=== PATIENT | male | born 1980 | race Two or more races ===

== ENCOUNTER 2023-04-15 13:55 | Emergency (ER) | payer SELFPAY ==
[~2023-04-15] VITALS: Ht 177.8 cm; Wt 90.0 kg
[2023-04-15 14:00] VITALS: BP 128/80
[2023-04-15 14:37] LABS: Basophils # (auto) 0.1 10 ^3/uL (0-0.2); Basophils % (auto) 0.8 % (0.0-2.0); Eosinophils # (auto) 0.1 10 ^3/uL (0-0.8); Eosinophils % (auto) 0.8 % (0.0-7.0); Hematocrit 37.2 % (41.0-53.0); Lymphocytes # (auto) 0.7 10 ^3/uL (0.4-5.4); Lymphocytes % (auto) 9.6 % (10.0-50.0); Mean Corpuscular Hemoglobin 31.1 pg (28.0-32.0); Mean Corpuscular Hgb Conc. 34.8 g/dL (32.0-36.0); Mean Corpuscular Volume 89.5 fL (80.0-100.0); Monocytes # (auto) 0.3 10 ^3/uL (0-1.3); Monocytes % (auto) 4.7 % (0.0-12.0); Neutrophils # (auto) 5.8 10 ^3/uL (1.6-8.6); Neutrophils % (auto) 84.1 % (37.0-80.0); Nucleated Red Blood Cells % 0.1 %; Red Blood Cells 4.16 10^6/uL (4.5-5.90); Red Cell Distribution Width 14.3 % (11.8-14.3); White Blood Cell 6.9 10^3/uL (4.4-10.8)
[2023-04-15 15:08] LABS: Potassium 4.6 mmol/L (3.5-5.1)
[2023-04-15 15:13] LABS: BUN/Creatinine Ratio 19.1 (10.0-20.0); Bilirubin, Total 0.3 mg/dL (0.2-1.0); Total Protein 6.6 g/dL (6.4-8.2)
== END 2023-04-15 17:50 | disposition home or self-care (01) ==
LOC: EDBD 13:55 → ER 13:55
DX: T67.5XXA Heat exhaustion, unspecified, initial encounter (principal); E11.9 Type 2 diabetes mellitus without complications; X58.XXXA Exposure to other specified factors, initial encounter; Y93.89 Activity, other specified; Y92.89 Other specified places as the place of occurrence of the external cause; Y99.8 Other external cause status
CPT/HCPCS: 36415; 80053; 83880; 84484; 85025; 85379; 93005

== ENCOUNTER 2025-08-03 06:12 | Inpatient (IN) | payer BC ==
[2025-08-03] VITALS (16 sets, daily range): BP systolic 148–185; BP diastolic 84–109; PULSE 80–107; RESP 10–19; TEMP 97.5–97.8; O2SAT 90–100
[~2025-08-03] VITALS: Ht 177.8 cm; Wt 99.3 kg
[2025-08-03] MEDS: PROCHLORPERAZINE EDISYLATE 5 MG/ML 2ML VIAL IV ONE (06:37)
[2025-08-03] MEDS: SODIUM CHLORIDE 0.9% 1,000 ML IV ONE ×3 (06:38→08:45)
[2025-08-03] MEDS: SODIUM CHLORIDE 0.9% 2,000 ML IV ONE (06:50)
[2025-08-03] MEDS ORDERED: SODIUM CHLORIDE 0.9% 1,000 ML IV ONE (07:00)
--- NOTE | 2025-08-03 07:02 | ED.PDOC ---
GI ASSESSMENT HPI Comments This is a 44-year-old male with a Hx of HTN and DM, who presents to the ED via EMS with a chief complaint of N/V and headache as of 1999 last night. Patient states his headache is a 8/10, with no known relieving factors. Patient reports last ingestion of ETOH was X2 days ago. Per EMS, patient was given Zofran en route with glucose reading 300 en route. Patient has no further complaints at this time and otherwise denies further associated symptoms of hematemesis, fatigue, weakness, fever, or chills. Chief Complaint: Nausea/Vomiting Time Seen by MD: 06:35 Reviewed Notes: Vp Notes, Medications, Allergies Allergies: Coded Allergies: Tetanus Toxoid (Verified Allergy, Unknown, 08/03/25) Information Source: Emergency Med Personnel Mode of Arrival: EMS Timing: Hours Duration: Since onset Prehospital treatment: Accucheck (300), Pain Meds (Zofran ) Severity: Moderate Associated sign and symptoms: Nausea, Vomiting, Other (headache ) Past Medical History PAST MEDICAL HISTORY: DM, HTN Surgical History: Denies all surgeries Family History Family History: Unknown Social History Smoker: Non-Smoker Alcohol: Occasionally Drugs: Denies Drug Use Lives In: Home Constitutional: denies: chills, diaphoresis, fatigue, fever, malaise, sweats, weakness, others EENTM: denies: blurred vision, double vision, ear bleeding, ear discharge, ear drainage, ear pain, ear ringing, eye pain, eye redness, hearing loss, mouth pain, mouth swelling, nasal discharge, nose bleeding, nose congestion, nose pain, photophobia, tearing, throat pain, throat swelling, voice changes, others Respiratory: denies: cough, hemoptysis, orthopnea, SOB at rest, shortness of breath, SOB with excertion, stridor, wheezing, others Cardiovascular: denies: chest pain, dizzy spells, diaphoresis, Dyspnea on exertion, edema, irregular heart beat, left arm pain, lightheadedness, palpitations, PND, syncope, others Gastrointestinal: reports: nausea, vomiting; denies: abdomen distended, abdominal pain, blood streaked bowels, constipated, diarrhea, dysphagia, di fficulty swallowing, hematemesis, melena, poor appetite, poor fluid intake, rectal bleeding, rectal pain, others Genitourinary: denies: burning, dysuria, flank pain, frequency, hematuria, incontinence, penile discharge, penile sore, pain, testicle pain, testicle swelling, urgency, others Neurological: reports: headache; denies: dizziness, fainting, left sided numbness, left sided weakness, numbness, paresthesia, pre-existing deficit, right sided numbness, right sided weakness, seizure, speech problems, tingling, tremors, weakness, others Musculoskeletal: denies: back pain, gout, joint pain, joint swelling, muscle pain, muscle stiffness, neck pain, others Integumetry: denies: bruises, change in color, change in hair/nails, dryness, laceration, lesions, lumps, rash, wounds, others Allergic/Immunocompromised: denies: Difficulty Healing, Frequent Infections, Hives, Itching, others Hematologic/Lymphatic: denies: anemia, blood clots, easy bleeding, easy bruising, swollen glands, others Endocrine: denies: excessive hunger, excessive sweating, excessive thirst, excessive urination, flushing, intolerance to cold, intolerance to heat, unexplained weight gain, unexplained weight loss, others Psychiatric: denies: anxiety, bipolar disorder, depression, hopeless, panic disorder, schizophrenia, sleepless, suicidal, others All Other Systems: Reviewed and Negative Physical Exam General Appearance: Moderate Distress HEENT: Normal ENT Inspection, Pharynx Normal, TMs Normal Neck: Full Range of Motion, Non-Tender, Normal, Normal Inspection Respiratory: Chest Non-Tender, Lungs Clear, No Accessory Muscle Use, No Respiratory Distress, Normal Breath Sounds Cardiovascular: No Edema, No JVD, No Murmur, No Gallop, Normal Peripheral Pulses, Regular Rate/Rhythm Breast Exam: Deferred Gastrointestinal: No Organomegaly, Non Tender, No Pulsatile Mass, Normal Bowel Sounds, Soft Genitalia: Deferred Pelvic: Deferred Rectal: Deferred Extremities: No calf tenderness, No pedal edema Musculoskeletal : Apperance: Normal Neurologic: Alert Cerebellar Function: NOT DONE Reflexes: NOT DONE Skin: Normal Color Peripheral Pulses: 3+ Radial (R), 3+ Radial (L) Lymphatic: No Adenopathy Was a procedure done? Was a procedure done?: No GI differential Dx Differential Diagnosis: Constipation, Diverticular disease, Esophagitis, Gastritis/PUD, Gastroenteritis, Inflammatory BD, Dehydration, Food Poisoning, Bacterial, Parasitic, Viral Other Differential Diagnosis Ingestion of ETOH X-Ray, Labs, Meds, VS Vital Signs Date Time Temp Pulse Resp B/P (MAP) Pulse Ox O2 Delivery O2 Flow Rate FiO2 08/03/25 07:04 86 11 172/89 08/03/25 06:52 Room Air* 0 21 08/03/25 06:52 97.7 95 25 172/94 (120) 100 97.7 08/03/25 06:20 98.0 95 20 162/128 99 98.0 Lab Test 08/03/25 07:07 Range/Units White Blood Count Pending Red Blood Count Pending Hemoglobin Pending Hematocrit Pending Mean Corpuscular Volume Pending Mean Corpuscular Hemoglobin Pending Mean Corpuscular Hemoglobin Concent Pending Red Cell Distribution Width Pending Platelet Count Pending Mean Platelet Volume Pending Neutrophils (%) (Auto) Pending Lymphocytes (%) (Auto) Pending Monocytes (%) (Auto) Pending Basophils (%) (Auto) Pending Neutrophils # (Auto) Pending Lymphocytes # (Auto) Pending Monocytes # (Auto) Pending Sodium Level Pending Potassium Level Pending Chloride Level Pending Carbon Dioxide Level Pending Anion Gap Pending Blood Urea Nitrogen Pending Creatinine Pending Glomerular Filtration Rate Calc Pending BUN/Creatinine Ratio Pending Serum Glucose Pending Calcium Level Pending Beta-Hydroxybutyric Acid Pending Current Medications Medications (Trade) Dose Ordered Sig/Elieser Route Start Time Stop Time Status Last Admin Prochlorperazine Edisylate (Compazine Inj) 10 mg ONCE ONCE IV 08/03/25 06:45 08/03/25 06:46 DC 08/03/25 06:37 Sodium Chloride 1,000 ml @ 1,000 mls/hr Q1H ONCE IV 08/03/25 06:45 08/03/25 07:44 08/03/25 06:38 Sodium Chloride 2,000 ml @ 1,000 mls/hr Q2H ONCE IV 08/03/25 06:45 08/03/25 08:44 08/03/25 06:50 Hydromorphone HCl (Dilaudid Injection) 1 mg ONCE ONCE IV 08/03/25 07:00 08/03/25 07:01 DC 08/03/25 07:04 Patient alert. Complaining of vomiting. History of diabetes. Vitals stable. Establish intravenous access. Was given fluids. Was given pain medication. Explained to the patient. Continue monitoring. Images Reviewed?: Images reviewed and evaluated by me Time of 1ST Reevaluation: 07:41 Reevaluation 1ST: Unchanged Patient Education/Counseling: Diagnosis, Treatment Family Education/Counseling: No Family Present SEPSIS Sepsis Screen Date sepsis recognized/suspect: Aug 03, 2025 Time Sepsis recognized/suspect: 651 Recent Procedure: No On Antibiotic Therapy: No Respiratory Rate >20: Yes Heart Rate >90: Yes Temp<36 C (96.8 F) or >38.3 C: No SBP <90 or MAP <65 mmHG: No New Acute Mental Status Change: No Is the patient on CPAP, BIPAP,: No Physician Orders Sodium Chloride 0.9% (08/03/25 06:45) Sodium Chloride 0.9% (08/03/25 06:45) Complete Blood Count (08/03/25 06:57) Chest Portable (08/03/25 06:57) Basic Metabolic Panel (08/03/25 06:57) Sodium Chloride 0.9% (08/03/25 07:00) Sodium Chloride 0.9% (08/03/25 07:00) Beta-Hydroxybutyrate (08/03/25 06:57) Lactic Acid W/ Reflex Order (08/03/25 07:13) Blood Culture (08/03/25 07:13) Vital Signs Date Time Temp Pulse Resp B/P (MAP) Pulse Ox O2 Delivery O2 Flow Rate FiO2 08/03/25 07:04 86 11 172/89 08/03/25 06:52 Room Air* 0 21 08/03/25 06:52 97.7 95 25 172/94 (120) 100 97.7 08/03/25 06:20 98.0 95 20 162/128 99 98.0 Laboratory Tests Test 08/03/25 07:07 White Blood Count Pending Medications Medications Dose Ordered Sig/Elieser Route Start Time Stop Time Status Last Admin Dose Admin Hydromorphone HCl 1 mg ONCE ONCE IV 08/03/25 07:00 08/03/25 07:01 DC 08/03/25 07:04 Prochlorperazine Edisylate 10 mg ONCE ONCE IV 08/03/25 06:45 08/03/25 06:46 DC 08/03/25 06:37 Sodium Chloride 1,000 ml @ 1,000 mls/hr Q1H ONCE IV 08/03/25 06:45 08/03/25 07:44 08/03/25 06:38 Sodium Chloride 2,000 ml @ 1,000 mls/hr Q2H ONCE IV 08/03/25 06:45 08/03/25 08:44 08/03/25 06:50 Departure 1 Departure Time of Disposition: 07:20 Impression: Primary Impression: Uncontrolled diabetes mellitus Qualified Codes: E13.65 - Other specified diabetes mellitus with hyperglycemia Disposition: ADMITTED INPATIENT Admit to: Med Surg Condition: Guarded Critical Care Note Critical Care Time?: Yes (90 min-critical care time only) Stability Stability form required: No Heart Score Heart Score: Heart Score Response (Comments) Value History N/A 0 EKG N/A 0 Age N/A 0 Risk Factors N/A 0 Troponin N/A 0 Total 0 I personally scribed for JESS SHABAZZ MD ([email or web address]) on 08/03/25 at 07:02. Electronically submitted by Zhane Davila ([facility]). JESS SHABAZZ MD Aug 03, 2025 07:02
[2025-08-03] MEDS: HYDROmorphone HCL 2 MG/ML VL/or syr IV ONE (07:04)
[2025-08-03 07:17] LABS: Hematocrit 34.6 % (41.0-53.0); Hemoglobin 12.4 g/dL (13.5-17.5); Mean Corpuscular Hemoglobin 33.9 pg (28.0-32.0); Mean Corpuscular Volume 94.4 fL (80.0-100.0); Nucleated Red Blood Cells % 0.0 %
[2025-08-03 07:24] LABS: Chloride 103 mmol/L (98-107); Potassium 3.8 mmol/L (3.5-5.1)
[2025-08-03 07:25] LABS: Anion Gap 13 (5-15); Calcium 8.7 mg/dL (8.7-10.4); Carbon Dioxide 19 mmol/L (20-31); Sodium 135 mmol/L (136-145)
[2025-08-03 07:30] LABS: BUN/Creatinine Ratio 12.9 (10.0-20.0); Blood Urea Nitrogen 22 mg/dL (9-23)
[2025-08-03] MEDS: InsuLIN REG 1unit/0.01ml Soln (100units/ml) IV ONE (07:30)
[2025-08-03 07:32] LABS: Glucose 302 mg/dL (74-106)
--- NOTE | 2025-08-03 07:47 | DVH ---
XY CHEST PORTABLE, HISTORY: sob COMPARISON: None None TECHNICAL DATA: 1 view of the chest was obtained. FINDINGS: Lines and tubes: None Cardiomediastinal silhouette: normal Pulmonary vasculature: normal Lung expansion: normal Lung airspace: normal Lung interstitium: normal Pleura: normal Pneumothorax: no Bones: Unremarkable Other: no IMPRESSION: No acute intrathoracic abnormality.
[2025-08-03] MEDS ORDERED: DEXTROSE (50%) 50ML SYRG IV PRN (08:45)
[2025-08-03] MEDS: SODIUM CHLORIDE 0.9% 1,000 ML IV SCH (08:45)
--- NOTE | 2025-08-03 08:50 | DVHHPRES ---
History of Present Illness Resident Creating Document: BRAEDEN HOLLY History of Present Illness Jax Davis is a 44-year-old male patient who presents to the ED with chief complaint of nausea, nonbloody emesis with food contacts, fever and chills which started approximately at 10:00 p.m. on 08/02/2025. Patient has history of diabetes and has not been taking his medication for over six months. Denies any bleeding, diarrhea, sick contacts, recent travel in any other associated symptoms. Past medical history: Hypertension, diabetes non-insulin requiring, diabetic foot status post amputation three years ago Surgical history: Partial left hallux amputation three years ago Family history: Noncontributory Social history: Lives in [place] with family (next of kin father). Denies current tobacco, alcohol and other drug abuse. Allergies: Tetanus Home medication: Denies. He should be on antidiabetic medication, but he has not been taking it for over six months) Patient seen and examined at bedside. Currently complains of headache, nausea, but has not been vomiting since admission in the ED. Past Medical History Per HPI Past Surgical History Per HPI Family History Per HPI Past Social History Per HPI Review of Systems Review of Systems Per HPI Allergies: Coded Allergies: Tetanus Toxoid (Verified Allergy, Unknown, 08/03/25) Exam Vital Signs Vital Signs Date Time Temp Pulse Resp B/P (MAP) Pulse Ox O2 Delivery O2 Flow Rate FiO2 08/03/25 07:04 86 11 172/89 08/03/25 06:52 Room Air* 0 21 08/03/25 06:52 97.7 100 97.7 Exam Patient lying in bed, in mild acute distress General: Lucid, afebrile, mucosae are dry Cardiovascular: Normal S1 and S2. No murmurs, gallops or rubs Respiratory: Normal ventilation mechanics. Clear lung sounds on auscultation Abdomen: Soft, nontender, no organomegaly, normal bowel sounds MSK/skin: Mobilizes 4 limbs. Skin is dry and warm. Left hallux partial amputation scar. No erythema or signs of ulcers. Neurological: Oriented in 3 spheres. No motor no sensitive deficits. Pupils are isocoric and reactive Labs/Xrays Labs Test 08/03/25 07:15 08/03/25 07:07 Range/Units Lactic Acid Level 1.4 0.4-2.0 mmol/L Plasma/Serum Blood Alcohol < 3.0 <10 mg/dL White Blood Count 6.4 4.4-10.8 10^3/uL Red Blood Count 3.67 L 4.5-5.90 10^6/uL Hemoglobin 12.4 L 13.5-17.5 g/dL Hematocrit 34.6 L 41.0-53.0 % Mean Corpuscular Volume 94.4 80.0-100.0 fL Mean Corpuscular Hemoglobin 33.9 H 28.0-32.0 pg Mean Corpuscular Hemoglobin Concent 35.8 32.0-36.0 g/dL Red Cell Distribution Width 12.8 11.8-14.3 % Platelet Count 217 140-450 10^3/uL Mean Platelet Volume 8.2 6.9-10.8 fL Neutrophils (%) (Auto) 86.2 H 37.0-80.0 % Lymphocytes (%) (Auto) 8.3 L 10.0-50.0 % Monocytes (%) (Auto) 4.1 0.0-12.0 % Eosinophils (%) (Auto) 0.5 0.0-7.0 % Basophils (%) (Auto) 0.9 0.0-2.0 % Neutrophils # (Auto) 5.6 1.6-8.6 10 ^3/uL Lymphocytes # (Auto) 0.5 0.4-5.4 10 ^3/uL Monocytes # (Auto) 0.3 0-1.3 10 ^3/uL Eosinophils # (Auto) 0 0-0.8 10 ^3/uL Basophils # (Auto) 0.1 0-0.2 10 ^3/uL Nucleated Red Blood Cells 0.0 % Sodium Level 135 L 136-145 mmol/L Potassium Level 3.8 3.5-5.1 mmol/L Chloride Level 103 98-107 mmol/L Carbon Dioxide Level 19 L 20-31 mmol/L Anion Gap 13 5-15 Blood Urea Nitrogen 22 9-23 mg/dL Creatinine 1.71 H 0.700-1.30 mg/dL Glomerular Filtration Rate Calc 50 >90 mL/min BUN/Creatinine Ratio 12.9 10.0-20.0 Serum Glucose 302 H 74-106 mg/dL Calcium Level 8.7 8.7-10.4 mg/dL SEPSIS Sepsis Screen Date sepsis recognized/suspect: Aug 03, 2025 Time Sepsis recognized/suspect: 651 Recent Procedure: No On Antibiotic Therapy: No Respiratory Rate >20: Yes Heart Rate >90: Yes Temp<36 C (96.8 F) or >38.3 C: No SBP <90 or MAP <65 mmHG: No New Acute Mental Status Change: No Is the patient on CPAP, BIPAP,: No Physician Orders Chest Portable (08/03/25 06:57) Sodium Chloride 0.9% (08/03/25 07:00) Beta-Hydroxybutyrate (08/03/25 06:57) Blood Culture (08/03/25 07:13) Drug Screen (08/03/25 07:21) Abg W/ Co-Ox (08/03/25 08:43) Vitamin D, 25-Hydroxy (08/03/25 08:43) Vitamin B12 (08/03/25 08:43) Urinalysis (08/03/25 08:43) Thyroid Stimulating Hormone (08/03/25 08:43) PTPTT (08/03/25 08:43) Phosphorus (08/03/25 08:43) Magnesium (08/03/25 08:43) Lipid Panel (08/03/25 08:43) Lipase (08/03/25 08:43) Hemoglobin A1c (08/03/25 08:43) Drug Screen (08/03/25 08:43) Ammonia (08/03/25 08:43) NS (08/03/25 08:45) NS (08/03/25 08:45) Admit (08/03/25 08:43) Code Status (08/03/25 08:43) Acetaminophen Tablet (Tylenol Tablet) (08/03/25 08:45) Ondansetron Hcl (Zofran) (08/03/25 08:45) Complete Blood Count (08/04/25 04:00) Comprehensive Metabolic Panel (08/04/25 04:00) Npo (Nothing By Mouth) Diet (08/03/25 Breakfast) Echo 2d Mode Cardiac Dop (08/03/25 08:43) Morphine Sulfate Injection (08/03/25 08:45) Lovenox 40mg (08/03/25 10:00) Oxygen By Nasal Cannula (08/03/25 08:43) Stat Ekg For Chest Pain (08/03/25 08:43) Notify Md Of Changes From Base (08/03/25 08:43) Party Demonstrator For 24 Hours (08/03/25 08:43) Emergency Dysrhythmia Protocol (08/03/25 08:43) Rhythm Strips Once Every Shift (08/03/25 08:43) Urine Bacterial Culture (08/03/25 08:43) Respiratory Culture W/ Gs (08/03/25 08:43) Glucose Blood (Accu-Chek Comfort Curve T (08/03/25 12:00) Moderate Insulin Ss (08/03/25 12:00) Dextrose 50% Syringe (08/03/25 08:45) Hepatic Panel (08/03/25 08:49) Vital Signs Date Time Temp Pulse Resp B/P (MAP) Pulse Ox O2 Delivery O2 Flow Rate FiO2 08/03/25 07:04 86 11 172/89 08/03/25 06:52 Room Air* 0 21 08/03/25 06:52 97.7 95 25 172/94 (120) 100 97.7 08/03/25 06:20 98.0 95 20 162/128 99 98.0 Laboratory Tests Test 08/03/25 07:07 08/03/25 07:15 White Blood Count 6.4 10^3/uL (4.4-10.8) Lactic Acid Level 1.4 mmol/L (0.4-2.0) Medications Medications Dose Ordered Sig/Elieser Route Start Time Stop Time Status Last Admin Dose Admin Hydromorphone HCl 1 mg ONCE ONCE IV 08/03/25 07:00 08/03/25 07:01 DC 08/03/25 07:04 1 MG Prochlorperazine Edisylate 10 mg ONCE ONCE IV 08/03/25 06:45 08/03/25 06:46 DC 08/03/25 06:37 10 MG Sodium Chloride 1,000 ml @ 1,000 mls/hr Q1H ONCE IV 08/03/25 06:45 08/03/25 07:44 DC 08/03/25 06:38 1,000 MLS/HR Sodium Chloride 2,000 ml @ 1,000 mls/hr Q2H ONCE IV 08/03/25 06:45 08/03/25 08:44 08/03/25 06:50 1,000 MLS/HR Assessment/Plan Assessment/Plan ASSESSMENT Simple hyperglycemia Intractable vomiting KEO hemodynamically mediated (VMN) Probable UTI Questionable aspiration PNA gram positive/Gram negative Obesity Hypertension Dyslipidemia Diabetes non-insulin requiring- controlled (hemoglobin A1c 6.7%) History of diabetic foot - status post partial left hallux amputation PLAN Patient currently on insulin sliding scale, required IV fluids No clear evidence of DKA (Bicarbonate 19, pH 7.37, AG 13, glucose 302). Chest x-ray shows probable right parahilar infiltrate Ordered pancultures (blood, urine and sputum) Currently under empiric IV antibiotics (Ceftriaxone and Azithromycin) Ordered EKG Ordered repeat BMP Avoid nephrotoxic medication. Goals of care discussed with patient for over 18 minutes: Full code status Discussed plan with Dr. Charlton, patient and nurses: Patient admitted finally to telemetry. Currently under IV fluids, insulin sliding scale and empiric IV antibiotics. Awaiting culture results. Plan discussed with: Patient, Other (Nurses) My Orders Orders - BRAEDEN HOLLY RESIDENT Procedure Category Date Status Time Abg W/ Co-Ox RT 08/03/25 Transmitted 08:43 Vitamin D, 25-Hydroxy LAB 08/03/25 Transmitted 08:43 Vitamin B12 LAB 08/03/25 Transmitted 08:43 Urinalysis LAB 08/03/25 Transmitted 08:43 Thyroid Stimulating LAB 08/03/25 Transmitted Hormone 08:43 PTPTT LAB 08/03/25 Transmitted 08:43 Phosphorus LAB 08/03/25 Transmitted 08:43 Magnesium LAB 08/03/25 Transmitted 08:43 Lipid Panel LAB 08/03/25 Transmitted 08:43 Lipase LAB 08/03/25 Transmitted 08:43 Hemoglobin A1c LAB 08/03/25 Transmitted 08:43 Drug Screen LAB 08/03/25 Transmitted 08:43 Ammonia LAB 08/03/25 Transmitted 08:43 NS PHA 08/03/25 Transmitted 08:45 NS PHA 08/03/25 Transmitted 08:45 Admit ADMIT 08/03/25 Transmitted 08:43 Code Status CODE 08/03/25 Transmitted 08:43 Acetaminophen Tablet PHA 08/03/25 Transmitted (Tylenol Tablet) 08:45 Ondansetron Hcl PHA 08/03/25 Transmitted (Zofran) 08:45 Complete Blood Count LAB 08/04/25 Verified 04:00 Comprehensive LAB 08/04/25 Verified Metabolic Panel 04:00 Npo (Nothing By DIET 08/03/25 Transmitted Mouth) Diet Breakfast Echo 2d Mode Cardiac US 08/03/25 Transmitted DOP 08:43 Morphine Sulfate PHA 08/03/25 Transmitted Injection 08:45 Lovenox 40mg PHA 08/03/25 Transmitted 10:00 Oxygen By Nasal RT 08/03/25 Transmitted Cannula 08:43 Stat Ekg For Chest SELAM 08/03/25 Transmitted Pain 08:43 Notify Md Of Changes [facility] 08/03/25 Transmitted From Base 08:43 Party Demonstrator For [facility] 08/03/25 Transmitted 24 Hours 08:43 Emergency Dysrhythmia [facility] 08/03/25 Transmitted Protocol 08:43 Rhythm Strips Once SELAM 08/03/25 Transmitted Every Shift 08:43 Urine Bacterial LUZ MARINA 08/03/25 Transmitted Culture 08:43 Respiratory Culture LUZ MARINA 08/03/25 Transmitted W/ Gs 08:43 Glucose Blood PHA 08/03/25 Transmitted (Accu-Chek Comfort 12:00 Moderate Insulin Ss PHA 08/03/25 Transmitted 12:00 Dextrose 50% Syringe PHA 08/03/25 Transmitted 08:45 Hepatic Panel LAB 08/03/25 Verified 08:49 Date of Service: Aug 03, 2025 Billing Provider: SVITLANA CHARLTON MD Common Visit Codes: 56288-AEUSVTW INP/OBS CARE (HIGH) Secondary Visit Codes: [id number] CARE PLAN 30 MINUTES BRAEDEN HOLLY RESIDENT Aug 03, 2025 08:50
[2025-08-03 09:19] LABS: Base Excess -4.6 mmol/L (-2.0-3.0)
[2025-08-03 09:35] LABS: INR 0.94 (0.9-1.15); Partial Thromboplastin Time 24.2 SEC (24.5-34.5); Prothrombin Time 10.0 sec (9.3-11.8)
[2025-08-03 09:56] LABS: Alanine Aminotransferase 16.0 U/L (7-40); Albumin 3.6 g/dL (3.2-4.8); Alkaline Phosphatase 65.0 U/L (46-116); Bilirubin, Direct 0.1 mg/dL (<0.3); Bilirubin, Total 0.5 mg/dL (0.2-1.0); Total Protein 6.7 g/dL (5.7-8.2)
[2025-08-03 10:01] LABS: Magnesium 1.7 mg/dL (1.6-2.6)
[2025-08-03 10:02] LABS: HDL Cholesterol 42.0 mg/dL (40-59)
[2025-08-03 10:04] LABS: Cholesterol 232.0 mg/dL (< 200)
[2025-08-03 10:05] LABS: Triglycerides 371.0 mg/dL (< 150)
[2025-08-03 10:15] LABS: Lipase 47.0 U/L (12-53)
--- NOTE | 2025-08-03 11:11 | DVH ---
INDICATION: KEO TECHNIQUE: Multiple real-time sonographic images of the kidneys and bladder were obtained. (39 images received.) COMPARISON: None FINDINGS: RIGHT kidney measures 12.45 cm in length. No hydronephrosis. LEFT kidney measures 12.62 cm in length. No hydronephrosis. No large intraluminal masses are seen in the bladder. Prevoid bladder volume 231.81 mL bladder wall measures 2.83 mm No postvoid image received. IMPRESSION: 1. Right kidney measures 12.45 cm. Left kidney measures 12.62 cm. 2. No hydronephrosis bilaterally.
[2025-08-03] MEDS: ACCU-CHEK COMFORT CURVE STRIP VI SCH (12:14)
[2025-08-03] MEDS: InsuLIN REG 1unit/0.01ml Soln (100units/ml) SC SCH (12:39)
[2025-08-03] MEDS: ENOXAPARIN SOD 40 MG/0.4 ML SYRINGE SC SCH (12:40)
[2025-08-03] MEDS: MORPHINE SULFATE INJ 2 MG/ml SYRG IV PRN (12:42)
[2025-08-03 13:09] LABS: Chloride 105 mmol/L (98-107); Potassium 4.6 mmol/L (3.5-5.1); Sodium 137 mmol/L (136-145)
[2025-08-03 13:10] LABS: Anion Gap 9 (5-15); Carbon Dioxide 23 mmol/L (20-31)
[2025-08-03 13:11] LABS: Calcium 9.0 mg/dL (8.7-10.4)
[2025-08-03 13:16] LABS: BUN/Creatinine Ratio 12.3 (10.0-20.0); Blood Urea Nitrogen 19 mg/dL (9-23); Glucose 253 mg/dL (74-106)
--- NOTE | 2025-08-03 13:27 | DVHSR ---
APPROVED REPORT EXAM: Two-dimensional and M-mode echocardiogram with Doppler and color Doppler. Blood Pressure: 172/89 mmHg INDICATION SOB RISK FACTORS Height: 5' 10", Weight: 220 DIMENSIONS LVDd4.7 (3.8-5.7cm)LA (2D)4.4 (1.9-4.0cm)Aortic Root4.0 (2.0-3.7cm) LVDs3.4 (2.5-4.0cm)LA (MM) (1.9-4.0cm)Aortic Cusp Exc1.8 (1.5-2.0cm) EF (%) 55.0 (55-70%)Rt. Atrium (1.9-4.0cm)Asc. Aorta cm IVSd1.3 (0.7-1.1cm)RV (D) (1.8-2.4cm) PWd1.2 (0.7-1.1cm) Mitral Valve MitralMitral Stenosis E wave0.70m/sMV Mean GR.mmHg A wave1.10m/sMV Peak GR.mmHg E/A ratio0.62D MVAcm2 Aortic Valve Aortic ValveAortic Stenosis V10.70m/Zina Mean GR.5mmHg V21.60m/Zina Peak GR.10mmHg LVOT Diameter2.4 (1.8-2.4cm)Doppler AVA1.98cm2 Pulmonic Valve V20.50m/s Conclusion lveff 55% moderate LVH normal atria no severe valve abnormaliteis noted
[2025-08-03] MEDS: AZITHROMYCIN 500MG/ 250ML 250 ML IV ONE (13:36)
--- NOTE | 2025-08-03 16:06 | ECG ---
[facility] Test Date: 2025-08-03 Test Time: 16:04:44 Pat Name: ALETHEA KING Department: Room: 0212T Gender: M [employer] Installer: JEAN-PAUL : 1980 Requested By: BRAEDEN HOLLY Order Number: [id number] Reading MD: Carlos A Madrid Measurements Intervals [place] Rate: 81 P: 33 MO: 156 QRS: 2 QRSD: 98 T: 51 QT: 394 QTc: 458 Interpretive Statements Sinus rhythm Probable left atrial enlargement Abnormal R-wave progression, late transition ST elev, probable normal early repol pattern Baseline wander in lead(s) V6 Electronically Signed On 08-04-2025 15:30:12 PDT by Carlos A Madrid Please click the below link to view image of tracing.
[2025-08-03] MEDS: ONDANSETRON HCL 4 MG/2 ML VIAL IV PRN (17:33)
[2025-08-03] MEDS: hydrALAZINE HCL 20 MG/ML VL IV PRN (17:33)
[2025-08-04] VITALS (10 sets, daily range): BP systolic 109–173; BP diastolic 67–102; PULSE 61–96; RESP 16–18; TEMP 98–99; O2SAT 93–98
[2025-08-04 02:08] LABS: Urine Protein, UAD 3+ (Negative)
[2025-08-04 02:50] LABS: Amphetamine Screen, Urine Neg (NEGATIVE); Barbiturate Scree,Urine Neg (NEGATIVE); Benzodiazephine Screen, Urine Neg (NEGATIVE); Cannabinoid Screen, Urine Neg (NEGATIVE); Cocaine Screen, Urine Neg (NEGATIVE); Opiate Scree,Urine Neg (NEGATIVE); Phencyclidine Screen, Urine Neg (NEGATIVE)
[2025-08-04 06:01] LABS: Hematocrit 34.5 % (41.0-53.0); Hemoglobin 12.2 g/dL (13.5-17.5); Mean Corpuscular Hemoglobin 33.2 pg (28.0-32.0); Mean Corpuscular Volume 93.7 fL (80.0-100.0); Nucleated Red Blood Cells % 0.0 %
[2025-08-04 06:20] LABS: Alanine Aminotransferase 14 U/L (7-40); Albumin 3.5 g/dL (3.2-4.8); Alkaline Phosphatase 60 U/L (46-116); Anion Gap 13 (5-15); BUN/Creatinine Ratio 12.1 (10.0-20.0); Blood Urea Nitrogen 17 mg/dL (9-23); Calcium 9.0 mg/dL (8.7-10.4); Carbon Dioxide 20 mmol/L (20-31); Potassium 3.8 mmol/L (3.5-5.1); Sodium 142 mmol/L (136-145); Total Protein 6.5 g/dL (5.7-8.2)
[2025-08-04 06:21] LABS: Bilirubin, Total 0.4 mg/dL (0.2-1.0)
[2025-08-04 06:25] LABS: Chloride 109 mmol/L (98-107); Glucose 151 mg/dL (74-106)
[2025-08-04] MEDS ORDERED: AZITHROMYCIN 500MG/ 250ML 250 ML IV SCH (10:00)
[2025-08-04] MEDS: INSULIN LANTUS (GLARGINE) 1 /0.01ml (100units/ml) SC SCH (11:00)
[2025-08-04] MEDS: LISINOPRIL 5 MG TAB PO SCH (11:01)
--- NOTE | 2025-08-04 11:35 | MEDREC ---
[facility] ASP Intervention Section I [facility] ASP Intervention: Review courses of therapy (PLEASE CONSIDER D/C ANTIBIOTIC IN ABSENCE OF BACTERIAL INFECTION) MARCELLO PRO PHARMACIST Aug 04, 2025 11:35
[2025-08-04] MEDS: ACETAMINOPHEN 325 MG TAB PO PRN (15:46)
--- NOTE | 2025-08-04 15:59 | DVHPNRES ---
Progress Note Date Seen: Aug 04, 2025 Resident Creating Document: SARAH GONZALEZ RESIDENT Has the PT tested + for MRSA If YES, has PT been informed?: No Medical Necessity Reason Pt with a Central, PICC or Fol: No Subjective Review of Systems Mr. Jax Davis is a 44-year-old male, with past medical history of DM2. The patient came to the ED via EMS with chief complaint of 1 day of vomit, >#5 of gastric content, that start sudden after eating street food; associated with nausea and 1 loose bowel movement. On further questioning the patient reports he does not has a PCP and he has not been taking DM2 medication for the last 6 months. The patient reports the nausea and vomit did not improved, and he starting having headache 8/10, diffused, throbbing with out irradiation, with no alleviating or worsening factors, this prompted his visit to the ED. On further questioning the patient reports he drank 12 cans of beer 2 days ago. The patient denies fever, chills, diarrhea, abdominal pain, chest pain or other symptoms. EMS reported blood sugar [address] to ED and administered zofran. In the ED blood sugar was 302mg/dl, BP was 162/128mmHg. The patient was admitted for further assessment and management. Past medical history: diabetes non-insulin requiring, diabetic foot status post amputation three years ago Surgical history: Partial left hallux amputation three years ago Family history: Noncontributory Social history: Lives in [place] with family (next of kin father). Denies current tobacco, drug use. The patient reports alcohol abuse, 12 cans of beers/day. Allergies: Tetanus Home medication: Denies. He should be on antidiabetic medication, but he has not been taking it for the last 6 months. The patient report he controls his blood sugar with diet. He does not has a PCP. Hospitalization course: On 08/04/25, the patient is evaluated and examined at bedside. VS, labs and chart was reviewed. VS showed BP: 151/86mmHg, is still on the high side, Lisinopril and amlodipine was started. Labs report HbA1C 6.7%. Lipase is 47. The patient reports improvement of headache, nausea and vomit. DKA was ruled out anion gap was closed. We will continue following up with this patient progress. ROS: Constitutional: denies: chills, diaphoresis, fatigue, fever, malaise, sweats, weakness, others EENTM: denies: blurred vision, double vision, ear bleeding, ear discharge, ear drainage, ear pain, ear ringing, eye pain, eye redness, hearing loss, mouth pain, mouth swelling, nasal discharge, nose bleeding, nose congestion, nose pain, photophobia, tearing, throat pain, throat swelling, voice changes, others Respiratory: denies: cough, hemoptysis, orthopnea, SOB at rest, shortness of breath, SOB with excertion, stridor, wheezing, others Cardiovascular: denies: chest pain, dizzy spells, diaphoresis, Dyspnea on exertion, edema, irregular heart beat, left arm pain, lightheadedness, palpitations, PND, syncope, others Gastrointestinal: reports: Improvement, no new nausea, vomiting or diarrhea; d enies: abdomen distended, abdominal pain, blood streaked bowels, constipated, diarrhea, dysphagia, difficulty swallowing, hematemesis, melena, poor appetite, poor fluid intake, rectal bleeding, rectal pain, others Genitourinary: denies: burning, dysuria, flank pain, frequency, hematuria, incontinence, penile discharge, penile sore, pain, testicle pain, testicle swelling, urgency, others Neurological: reports: headache has improved; denies: dizziness, fainting, left sided numbness, left sided weakness, numbness, paresthesia, pre-existing deficit, right sided numbness, right sided weakness, seizure, speech problems, tingling, tremors, weakness, others Musculoskeletal: denies: back pain, gout, joint pain, joint swelling, muscle pain, muscle stiffness, neck pain, others Integumetry: denies: bruises, change in color, change in hair/nails, dryness, laceration, lesions, lumps, rash, wounds, others Allergic/Immunocompromised: denies: Difficulty Healing, Frequent Infections, Hives, Itching, others Hematologic/Lymphatic: denies: anemia, blood clots, easy bleeding, easy bruising, swollen glands, others Endocrine: denies: excessive hunger, excessive sweating, excessive thirst, excessive urination, flushing, intolerance to cold, intolerance to heat, unexplained weight gain, unexplained weight loss, others Psychiatric: denies: anxiety, bipolar disorder, depression, hopeless, panic disorder, schizophrenia, sleepless, suicidal, others All Other Systems: Reviewed and Negative Objective vital signs Vital Sign Date Time Temp Pulse Resp B/P (MAP) Pulse Ox O2 Delivery O2 Flow Rate FiO2 08/04/25 14:49 162/86 08/04/25 13:40 98.0 61 17 97 98.0 08/04/25 08:00 Room Air* 0 21 Total Intake and Output 08/03/25 08/03/25 08/04/25 15:00 23:00 07:00 Intake Total 3800 ml 250 ml 750 ml Output Total 950 ml 500 ml Balance 3800 ml -700 ml 250 ml medications Current Medications Medications Dose Ordered Sig/Elieser Route Start Time Stop Time Status Last Admin Dose Admin Sodium Chloride 1,000 ml @ 125 mls/hr Q8H IV 08/03/25 08:45 08/04/25 05:32 125 MLS/HR Acetaminophen 325 mg Q4HP PRN PO 08/03/25 08:45 Ondansetron HCl 4 mg Q4HP PRN IV 08/03/25 08:45 08/04/25 00:15 4 MG Morphine Sulfate 2 mg Q4HPRN PRN IV 08/03/25 08:45 08/03/25 17:33 2 MG Enoxaparin Sodium 40 mg DAILY SC 08/03/25 10:00 08/04/25 10:40 40 MG Diagnostic Test (Pha) 1 strip IQ4HR 08/03/25 12:00 08/04/25 11:54 1 STRIP Insulin Human Regular IQ4HR SC 08/03/25 12:00 08/04/25 11:54 2 UNITS Dextrose 50 ml UD PRN IV 08/03/25 08:45 Ceftriaxone Sodium 50 ml @ 100 mls/hr DAILY@09 IV 08/04/25 09:00 08/04/25 08:09 100 MLS/HR Azithromycin 250 ml @ 125 mls/hr DAILY IV 08/04/25 10:00 Hold Amlodipine Besylate 10 mg DAILY PO 08/04/25 10:00 08/04/25 10:41 10 MG Hydralazine HCl 10 mg Q8HPRN PRN IV 08/03/25 17:15 08/04/25 14:49 10 MG Insulin Glargine 10 units QAM SC 08/04/25 08:45 08/04/25 11:00 10 UNITS Lisinopril 10 mg DAILY PO 08/04/25 10:00 08/04/25 11:01 10 MG Examination General Appearance: , Alert, Orientedx3, Cooperative, No acute distress. HEENT: Atraumatic. Mucous membranes moist/pink Respiratory: normal lung expansion, vesicular breath sounds. Cardiovascular: Regular rate, Normal S1, Normal S2, no murmurs. Abdominal: Normal bowel sounds, Soft, no tenderness Extremities: no edema, normal ROM. left foot: partial left hallux amputation. Neuro: Strength at 5/5 X4 ext, Normal tone, Sensation intact Psych/Mental Status: Alerted, normal mood. laboratory and microbiology Laboratory Tests 08/04/25 04:17 Test 08/04/25 04:17 Range/Units Serum Glucose 151 #H 74-106 mg/dL Microbiology Date/Time Source Procedure Growth Status 08/03/25 07:30 Blood Blood Culture - Preliminary NO GROWTH AFTER 24 HOURS OF INCUBATION. Resulted Problem List/Assessment/Plan Problem List/Assessment/Plan #Hypertensive urgency #Hypertensive heart disease with systolic/diastolic disfunction Lisinopril 10mg po daily Amlodipine 5mg po daily hydralazine 10mg IV EKG ECHO BMP #DM2 with hyperglycemia no in DKA #DKA ruled out: normal anion gap. Insulin sliding scale Accu-check #Acute intractable vomit like due to gastroenteritis viral/bacterial. IV fluids: NS Zofran prn #CKD stage stage 3a on KEO hemodynamically mediated (VMN) UTI ruled out IV fluids: NS Avoid nephrotoxic drugs Monitor creatinine and BUN. #Possible pneumonia gram positive/Gram negative Chest x-ray shows probable right parahilar infiltrate Ordered pancultures (blood, urine and sputum) Currently under empiric IV antibiotics (Ceftriaxone and Azithromycin) #Obesity BMI: 31.2 Counseling about healthy life style. DVT prophylaxis: patient deambulates Diet: Cardiac diet Goals of care discussed with the patient for more than 35 minutes Code Status: Full code PCP: Not establish yet. Patient will follow up with D/C clinic Case discussed with Dr. Chávez Social consult was placed today to try to contact patient's family. Plan discussed with: Patient My Orders My Orders Orders - SARAH GONZALEZ RESIDENT Procedure Category Date Status Time Consistent DIET 08/04/25 Transmitted Carb(Ccho)Diabetes Lunch Complete Blood Count LAB 08/05/25 Verified 04:00 Basic Metabolic Panel LAB 08/05/25 Verified 04:00 Consult For Nutrition NOURISH 08/04/25 Transmitted 14:36 Date of Service: Aug 04, 2025 Billing Provider: ROLAND CHÁVEZ MD Common Visit Codes: [id number] INP/OBS CARE(HIGH) Date of Service: Aug 04, 2025 Billing Provider: ROLAND CHÁVEZ MD Common Visit Codes: [id number] INP/OBS CARE(HIGH) SARAH GONZALEZ RESIDENT Aug 04, 2025 15:59 ROLAND CHÁVEZ MD Aug 04, 2025 18:08
[2025-08-04] MEDS: HYDROcodone-ACET 5/325MG TAB PO PRN (18:19)
[2025-08-04] MEDS: cloNIDine 0.1 mg/24hr 7 DAY PATCH TD SCH (18:20)
[2025-08-04 18:28] LABS: COVID19 ANTIGEN SOFIA FIA NEGATIVE (NEGATIVE)
[2025-08-04] MEDS: AZITHROMYCIN 500MG/ 250ML 250 ML IV SCH (20:00)
[2025-08-05] VITALS (10 sets, daily range): BP systolic 0–166; BP diastolic 72–102; PULSE 72–104; RESP 16–18; TEMP 97.1–98.7; O2SAT 98–99
[2025-08-05] MEDS: PANTOPRAZOLE 40 MG TAB PO SCH (06:11)
[2025-08-05 07:25] LABS: Hematocrit 34.1 % (41.0-53.0); Hemoglobin 12.0 g/dL (13.5-17.5); Mean Corpuscular Hemoglobin 32.7 pg (28.0-32.0); Mean Corpuscular Volume 92.7 fL (80.0-100.0); Nucleated Red Blood Cells % 0.1 %
[2025-08-05 07:41] LABS: Anion Gap 10 (5-15); Carbon Dioxide 22 mmol/L (20-31); Chloride 103 mmol/L (98-107)
[2025-08-05 07:43] LABS: Calcium 8.4 mg/dL (8.7-10.4); Potassium 3.2 mmol/L (3.5-5.1); Sodium 135 mmol/L (136-145)
[2025-08-05 07:48] LABS: BUN/Creatinine Ratio 6.1 (10.0-20.0)
[2025-08-05 07:51] LABS: Blood Urea Nitrogen 8 mg/dL (9-23); Glucose 121 mg/dL (74-106)
--- NOTE | 2025-08-05 10:27 | DVHPNRES ---
Progress Note Date Seen: Aug 05, 2025 Resident Creating Document: SARAH GONZALEZ RESIDENT Has the PT tested + for MRSA If YES, has PT been informed?: No Medical Necessity Reason Pt with a Central, PICC or Fol: No Subjective Review of Systems Mr. Jax Davis is a 44-year-old male, with past medical history of DM2. The patient came to the ED via EMS with chief complaint of 1 day of vomit, >#5 of gastric content, that start sudden after eating street food; associated with nausea and 1 loose bowel movement. On further questioning the patient reports he does not has a PCP and he has not been taking DM2 medication for the last 6 months. The patient reports the nausea and vomit did not improved, and he starting having headache 8/10, diffused, throbbing with out irradiation, with no alleviating or worsening factors, this prompted his visit to the ED. On further questioning the patient reports he drank 12 cans of beer 2 days ago. The patient denies fever, chills, diarrhea, abdominal pain, chest pain or other symptoms. EMS reported blood sugar [address] to ED and administered zofran. In the ED blood sugar was 302mg/dl, BP was 162/128mmHg. The patient was admitted for further assessment and management. Past medical history: diabetes non-insulin requiring, diabetic foot status post amputation three years ago Surgical history: Partial left hallux amputation three years ago Family history: Noncontributory Social history: Lives in [place] family (next of kin father). Denies current tobacco, drug use. The patient reports alcohol abuse, 12 cans of beers/day. Allergies: Tetanus Home medication: Denies. He should be on antidiabetic medication, but he has not been taking it for the last 6 months. The patient report he controls his blood sugar with diet. He does not has a PCP. Hospitalization course: On 08/04/25, the patient is evaluated and examined at bedside. VS, labs and chart was reviewed. VS showed BP: 151/86mmHg, is still on the high side, Lisinopril and amlodipine was started. Labs report HbA1C 6.7%. Lipase is 47. The patient reports improvement of headache, nausea and vomit. DKA was ruled out anion gap was closed. We will continue following up with this patient progress. On 08/05/25, the patient is evaluated and examined at bedside. VS, labs and chart was reviewed. VS showed BP is still on the high side : 152/90mmHg, Lisinopril was increased to 20mg. The patient continues with IV antibiotics for pneumonia. WBC are improving. The patient reports left sided headache 5/10, dizziness and nausea. We will continue following up with this patient progress. ROS: Constitutional: denies: chills, diaphoresis, fatigue, fever, malaise, sweats, weakness, others EENTM: denies: blurred vision, double vision, ear bleeding, ear discharge, ear drainage, ear pain, ear ringing, eye pain, eye redness, hearing loss, mouth pain, mouth swelling, nasal discharge, nose bleeding, nose congestion, nose pain, photophobia, tearing, throat pain, throat swelling, voice changes, others Respiratory: denies: cough, hemoptysis, orthopnea, SOB at rest, shortness of breath, SOB with excertion, stridor, wheezing, others Cardiovascular: denies: chest pain, dizzy spells, diaphoresis, Dyspnea on exertion, edema, irregular heart beat, left arm pain, lightheadedness, palpitations, PND, syncope, others Gastrointestinal: reports: Improvement, no new nausea, vomiting or diarrhea; d enies: abdomen distended, abdominal pain, blood streaked bowels, constipated, diarrhea, dysphagia, difficulty swallowing, hematemesis, melena, poor appetite, poor fluid intake, rectal bleeding, rectal pain, others Genitourinary: denies: burning, dysuria, flank pain, frequency, hematuria, incontinence, penile discharge, penile sore, pain, testicle pain, testicle swelling, urgency, others Neurological: reports: headache has improved; denies: dizziness, fainting, left sided numbness, left sided weakness, numbness, paresthesia, pre-existing deficit, right sided numbness, right sided weakness, seizure, speech problems, tingling, tremors, weakness, others Musculoskeletal: denies: back pain, gout, joint pain, joint swelling, muscle pain, muscle stiffness, neck pain, others Integumetry: denies: bruises, change in color, change in hair/nails, dryness, laceration, lesions, lumps, rash, wounds, others Allergic/Immunocompromised: denies: Difficulty Healing, Frequent Infections, Hives, Itching, others Hematologic/Lymphatic: denies: anemia, blood clots, easy bleeding, easy bruising, swollen glands, others Endocrine: denies: excessive hunger, excessive sweating, excessive thirst, excessive urination, flushing, intolerance to cold, intolerance to heat, unexplained weight gain, unexplained weight loss, others Psychiatric: denies: anxiety, bipolar disorder, depression, hopeless, panic disorder, schizophrenia, sleepless, suicidal, others All Other Systems: Reviewed and Negative Objective vital signs Vital Sign Date Time Temp Pulse Resp B/P (MAP) Pulse Ox O2 Delivery O2 Flow Rate FiO2 08/05/25 08:54 98.2 84 16 149/85 (106) 99 98.2 08/04/25 20:00 Room Air* 0 21 Total Intake and Output 08/04/25 08/04/25 08/05/25 15:00 23:00 07:00 Intake Total 50 ml 625 ml 800 ml Balance 50 ml 625 ml 800 ml medications Current Medications Medications Dose Ordered Sig/Elieser Route Start Time Stop Time Status Last Admin Dose Admin Acetaminophen 325 mg Q4HP PRN PO 08/03/25 08:45 08/04/25 15:46 325 MG Ondansetron HCl 4 mg Q4HP PRN IV 08/03/25 08:45 08/04/25 00:15 4 MG Morphine Sulfate 2 mg Q4HPRN PRN IV 08/03/25 08:45 08/03/25 17:33 2 MG Enoxaparin Sodium 40 mg DAILY SC 08/03/25 10:00 08/05/25 08:35 40 MG Diagnostic Test (Pha) 1 strip IQ4HR 08/03/25 12:00 08/05/25 07:37 1 STRIP Insulin Human Regular IQ4HR SC 08/03/25 12:00 08/05/25 04:37 2 UNITS Dextrose 50 ml UD PRN IV 08/03/25 08:45 Ceftriaxone Sodium 50 ml @ 100 mls/hr DAILY@09 IV 08/04/25 09:00 08/05/25 08:34 100 MLS/HR Amlodipine Besylate 10 mg DAILY PO 08/04/25 10:00 08/05/25 08:34 10 MG Hydralazine HCl 10 mg Q8HPRN PRN IV 08/03/25 17:15 08/04/25 14:49 10 MG Insulin Glargine 10 units QAM SC 08/04/25 08:45 08/05/25 06:22 10 UNITS Pantoprazole Sodium 40 mg DAILY@0600 PO 08/05/25 06:00 08/05/25 06:11 40 MG Acetaminophen/ Hydrocodone Bitart 1 tab Q4HPRN PRN PO 08/04/25 18:00 08/05/25 10:05 1 TAB Clonidine HCl 0.1 mg Q7D TD 08/04/25 18:00 08/04/25 18:20 0.1 MG Azithromycin 250 ml @ 125 mls/hr DAILY@2000 IV 08/04/25 20:00 08/04/25 20:00 125 MLS/HR Lisinopril 20 mg DAILY PO 08/06/25 10:00 Examination General Appearance: , Alert, Orientedx3, Cooperative, No acute distress. HEENT: Atraumatic. Mucous membranes moist/pink Respiratory: normal lung expansion, vesicular breath sounds. Cardiovascular: Regular rate, Normal S1, Normal S2, no murmurs. Abdominal: Normal bowel sounds, Soft, no tenderness Extremities: no edema, normal ROM. left foot: partial left hallux amputation. Neuro: Strength at 5/5 X4 ext, Normal tone, Sensation intact Psych/Mental Status: Alerted, normal mood. laboratory and microbiology Laboratory Tests 08/05/25 05:43 Test 08/05/25 05:43 Range/Units Serum Glucose 121 H 74-106 mg/dL Microbiology Date/Time Source Procedure Growth Status 08/03/25 14:15 Nose MRSA Screen - Final Complete 08/03/25 07:30 Blood Blood Culture - Preliminary NO GROWTH AFTER 48 HOURS OF INCUBATION. Resulted Problem List/Assessment/Plan Problem List/Assessment/Plan #Hypertensive urgency #Hypertensive heart disease with systolic/diastolic disfunction Lisinopril 20mg po daily Amlodipine 5mg po daily hydralazine 10mg IV EKG ECHO: lveff 55%, moderate LVH, normal atria BMP:130 #DM2 with hyperglycemia no in DKA #DKA ruled out: normal anion gap. Insulin sliding scale Accu-check #Acute intractable vomit like due to gastroenteritis viral/bacterial. IV fluids: NS Zofran 4mg po prn for nausea #CKD stage stage 3a on KEO hemodynamically mediated (VMN) UTI ruled out IV fluids: NS Avoid nephrotoxic drugs Monitor creatinine and BUN. #Possible pneumonia gram positive/Gram negative Chest x-ray shows probable right parahilar infiltrate Ordered pancultures (blood, urine and sputum) Currently under empiric IV antibiotics (Ceftriaxone and Azithromycin) #Obesity BMI: 31.2 Counseling about healthy life style. DVT prophylaxis: patient deambulates Diet: Cardiac diet Goals of care discussed with the patient for more than 35 minutes Code Status: Full code PCP: Not establish yet. Patient will follow up with D/C clinic Case discussed with Dr. Chávez Social consult was placed today to try to contact patient's family. Plan discussed with: Patient My Orders My Orders Orders - SARAH GONZALEZ RESIDENT Procedure Category Date Status Time Consistent DIET 08/04/25 Transmitted Carb(Ccho)Diabetes Lunch Consult For Nutrition NOURISH 08/04/25 Transmitted 14:36 Drug Screen LAB 08/04/25 Logged 15:57 Pantoprazole Tablet PHA 08/05/25 In Process (Protonix Tablet) 06:00 Hydrocodone-Acet PHA 08/04/25 In Process 5/325mg Tab ([place] 18:00 Date of Service: Aug 05, 2025 Billing Provider: ROLAND CHÁVEZ MD Common Visit Codes: [id number] INP/OBS CARE(HIGH) SARAH GONZALEZ RESIDENT Aug 05, 2025 10:27 ROLAND CHÁVEZ MD Aug 06, 2025 22:53
[2025-08-05] MEDS: LISINOPRIL 5 MG TAB PO ONE (12:10)
[2025-08-05] MEDS: POTASSIUM EFFERVESENT TAB 25 MEQ PO ONE (12:10)
[2025-08-05] MEDS: CHLORTHALIDONE 25 MG TAB PO ONE (17:42)
[2025-08-06 01:00] VITALS: BP 131/79; PULSE 77; PULSE 99; RESP 18; TEMP 98; O2SAT 99
[2025-08-06 05:00] VITALS: BP 121/80; PULSE 77; PULSE 97; RESP 18; TEMP 98.7; O2SAT 97
[2025-08-06 06:10] LABS: Hematocrit 35.4 % (41.0-53.0); Hemoglobin 12.7 g/dL (13.5-17.5); Mean Corpuscular Hemoglobin 32.7 pg (28.0-32.0); Mean Corpuscular Volume 91.1 fL (80.0-100.0); Nucleated Red Blood Cells % 0.1 %
[2025-08-06 06:20] LABS: Anion Gap 9 (5-15); Carbon Dioxide 25 mmol/L (20-31); Chloride 100 mmol/L (98-107); Potassium 4.0 mmol/L (3.5-5.1)
[2025-08-06 06:23] LABS: Calcium 8.6 mg/dL (8.7-10.4); Sodium 134 mmol/L (136-145)
[2025-08-06 06:26] LABS: BUN/Creatinine Ratio 8.0 (10.0-20.0); Blood Urea Nitrogen 11 mg/dL (9-23); Glucose 97 mg/dL (74-106)
[2025-08-06] MEDS: CHLORTHALIDONE 25 MG TAB PO SCH (07:59)
[2025-08-06 08:00] VITALS: PULSE 78; PULSE 98; RESP 18; O2SAT 97
[2025-08-06 08:53] VITALS: BP 157/88; PULSE 82; RESP 17; TEMP 97.6; O2SAT 99
[2025-08-06] MEDS: LISINOPRIL 20 MG TAB PO SCH (09:43)
--- NOTE | 2025-08-06 10:26 | DVHDSRES ---
Discharge Summary Date of Admission Resident Creating Document: SARAH GONZALEZ RESIDENT Aug 03, 2025 at 08:43 Date of Discharge: Aug 06, 2025 Admitting Diagnosis Uncontrolled DM2 with hyperglycemia, possible DKA Possible community acquire pneumonia gram -/+ Intractable vomit due to possible acute gastroenteritis bacterial/viral KEO due to volume depletion Hypertensive urgency Wounds: No wounds during admission Labs/Diagnostic Data: Laboratory Results Test 08/06/25 08:02 08/06/25 04:39 08/05/25 05:43 08/04/25 17:23 POC Glucose 126 mg/dl (70-106) White Blood Count 6.7 10^3/uL (4.4-10.8) Red Blood Count 3.89 10^6/uL (4.5-5.90) Hemoglobin 12.7 g/dL (13.5-17.5) Hematocrit 35.4 % (41.0-53.0) Mean Corpuscular Volume 91.1 fL (80.0-100.0) Mean Corpuscular Hemoglobin 32.7 pg (28.0-32.0) Mean Corpuscular Hemoglobin Concent 35.8 g/dL (32.0-36.0) Red Cell Distribution Width 13.0 % (11.8-14.3) Platelet Count 257 10^3/uL (140-450) Mean Platelet Volume 8.8 fL (6.9-10.8) Neutrophils (%) (Auto) 67.1 % (37.0-80.0) Lymphocytes (%) (Auto) 22.5 % (10.0-50.0) Monocytes (%) (Auto) 7.6 % (0.0-12.0) Eosinophils (%) (Auto) 1.8 % (0.0-7.0) Basophils (%) (Auto) 1.0 % (0.0-2.0) Neutrophils # (Auto) 4.5 10 ^3/uL (1.6-8.6) Lymphocytes # (Auto) 1.5 10 ^3/uL (0.4-5.4) Monocytes # (Auto) 0.5 10 ^3/uL (0-1.3) Eosinophils # (Auto) 0.1 10 ^3/uL (0-0.8) Basophils # (Auto) 0.1 10 ^3/uL (0-0.2) Nucleated Red Blood Cells 0.1 % Sodium Level 134 mmol/L (136-145) Potassium Level 4.0 mmol/L (3.5-5.1) Chloride Level 100 mmol/L (98-107) Carbon Dioxide Level 25 mmol/L (20-31) Anion Gap 9 (5-15) Blood Urea Nitrogen 11 mg/dL (9-23) Creatinine 1.38 mg/dL (0.700-1.30) Glomerular Filtration Rate Calc 64 mL/min (>90) BUN/Creatinine Ratio 8.0 (10.0-20.0) Serum Glucose 97 mg/dL (74-106) Calcium Level 8.6 mg/dL (8.7-10.4) B-Type Natriuretic Peptide 130.51 pg/mL (0-100) Influenza Type A Antigen Negative (Negative) Influenza Type B Antigen Negative (Negative) SARS-CoV-2 Antigen (Rapid) Negative (NEGATIVE) Test 08/04/25 16:50 08/04/25 04:17 08/04/25 01:52 08/03/25 12:31 Plasma/Serum Blood Alcohol < 3.0 mg/dL (<10) Total Bilirubin 0.4 mg/dL (0.2-1.0) Aspartate Amino Transferase (AST) 16 U/L (13-40) Alanine Aminotransferase (ALT) 14 U/L (7-40) Alkaline Phosphatase 60 U/L (46-116) Total Protein 6.5 g/dL (5.7-8.2) Albumin 3.5 g/dL (3.2-4.8) Urine Color Light-yellow (Yellow) Urine Clarity Clear (Clear) Urine pH 6.0 (5.0-9.0) Urine Specific [place] 1.014 (1.001-1.035) Urine Protein 3+ (Negative) Urine Ketones Negative (Negative) Urine Blood 1+ /uL (Negative) Urine Nitrite Negative (Negative) Urine Bilirubin Negative (Negative) Urine Urobilinogen Normal mg/dL (Negative) Urine Leukocyte Esterase Negative /uL (Negative) Urine RBC 3 /hpf (0 - 3) Urine Microscopic WBC 2 /HPF (0-3) Urine Squamous Epithelial Cells Few /hpf (<5) Urine Bacteria None seen /hpf (None Seen) Urine Glucose 3+ mg/dL (Normal) Urine Opiates Screen Neg (NEGATIVE) Urine Fentanyl Screen Neg (NEGATIVE) Urine Barbiturates Screen Neg (NEGATIVE) Urine Phencyclidine Screen Neg (NEGATIVE) Urine Amphetamines Screen Neg (NEGATIVE) Urine Benzodiazepines Screen Neg (NEGATIVE) Urine Cocaine Screen Neg (NEGATIVE) Urine Cannabinoids Screen Neg (NEGATIVE) Serum Osmolality 300 mOsm/kg (278-298) Test 08/03/25 09:04 08/03/25 09:03 08/03/25 07:15 08/03/25 07:07 Ammonia < 10 umol/L (11-32) Blood Gas Specimen Type Arterial Blood Gas Sample Site Right radial Blood Gas Patient Temperature 37.0 Arterial Blood Date Drawn [id number] Arterial Blood pH 7.377 (7.350-7.450) Arterial Blood Partial Pressure CO2 34.4 mmHg (35.0-48.0) Arterial Blood Partial Pressure O2 65.2 mmHg (83.0-108.0) Arterial Blood HCO3 19.8 mmol/L (21.0-28.0) Arterial Blood Oxygen Saturation 91.1 % (94.0-98.0) Arterial Blood Base Excess -4.6 mmol/L (-2.0-3.0) Arterial Blood Oxyhemoglobin 90.0 % (94.0-98.0) Arterial Blood Carboxyhemoglobin 0.6 % (0.5-1.5) Arterial Blood Methemoglobin 0.6 % (0.0-1.5) Ronaldo Test Yes Blood Gas Total Hemoglobin 13.90 g/dL (13.5-17.5) Blood Gas Modality Room air FiO2 % 21.0 Lactic Acid Level 1.4 mmol/L (0.4-2.0) Phosphorus Level 1.3 mg/dL (2.4-5.1) Magnesium Level 1.7 mg/dL (1.6-2.6) Triglycerides Level 371 mg/dL (< 150) Cholesterol Level 232 mg/dL (< 200) LDL Cholesterol 131 mg/dL (< 100) HDL Cholesterol 42 mg/dL (40-59) Lipase 47 U/L (12-53) Prothrombin Time 10.0 sec (9.3-11.8) Prothrombin Time INR 0.94 (0.9-1.15) Activated Partial Thromboplast Time 24.2 SEC (24.5-34.5) Hemoglobin A1c 6.7 % A1C (<5.7) Direct Bilirubin 0.1 mg/dL (<0.3) Vitamin B12 Level 258 pg/mL (211-911) Vitamin D 25-Hydroxy 9.9 ng/mL (30.0-100) Beta-Hydroxybutyric Acid 1.33 mmol/L (< 0.4) Thyroid Stimulating Hormone (TSH) 2.24 uIU/mL (0.55-4.78) Other Laboratory Tests 08/06/25 04:39 Brief Hx & Hospital Course: Mr. Jax Davis is a 44-year-old male, with past medical history of DM2. The patient came to the ED via EMS with chief complaint of 1 day of vomit, >#5 of gastric content, that start sudden after eating street food; associated with nausea and 1 loose bowel movement. On further questioning the patient reports he does not has a PCP and he has not been taking DM2 medication for the last 6 months. The patient reports the nausea and vomit did not improved, and he starting having headache 8/10, diffused, throbbing with out irradiation, with no alleviating or worsening factors, this prompted his visit to the ED. On further questioning the patient reports he drank 12 cans of beer 2 days ago. The patient denies fever, chills, diarrhea, abdominal pain, chest pain or other symptoms. EMS reported blood sugar [address] to ED and administered zofran. In the ED blood sugar was 302mg/dl, BP was 162/128mmHg. The patient was admitted for further assessment and management. Past medical history: diabetes non-insulin requiring, diabetic foot status post amputation three years ago Surgical history: Partial left hallux amputation three years ago Family history: Noncontributory Social history: Lives in [place] with family (next of kin father). Denies current tobacco, drug use. The patient reports alcohol abuse, 12 cans of beers/day. Allergies: Tetanus Home medication: Denies. He should be on antidiabetic medication, but he has not been taking it for the last 6 months. The patient report he controls his blood sugar with diet. He does not has a PCP. Hospitalization course: On 08/04/25, the patient is evaluated and examined at bedside. VS, labs and chart was reviewed. VS showed BP: 151/86mmHg, is still on the high side, Lisinopril and amlodipine was started. Labs report HbA1C 6.7%. Lipase is 47. The patient reports improvement of headache, nausea and vomit. DKA was ruled out anion gap was closed. We will continue following up with this patient progress. On 08/05/25, the patient is evaluated and examined at bedside. VS, labs and chart was reviewed. VS showed BP is still on the high side : 152/90mmHg, Lisinopril was increased to 20mg. The patient continues with IV antibiotics for pneumonia. WBC are improving. The patient reports left sided headache 5/10, dizziness and nausea. We will continue following up with this patient progress. On 08/06/25, the patient is evaluated and examined at bedside. VS, labs and chart was reviewed. VS showed BP has improved, his blood pressure has been controlled. His pneumonia has improved with IV antibiotics (Ceftriaxone and azithromycin) the WBC are normal 6.7.. The KEO has resolved, creatinine has returned to baseline. Blood glucose is under control. The patient reports feeling better, his headache has resolved. Due to clinical improvement the patient will be discharge home today, he will follow up with PCP on Monday08/11/25. ROS: Constitutional: denies: chills, diaphoresis, fatigue, fever, malaise, sweats, weakness, others EENTM: denies: blurred vision, double vision, ear bleeding, ear discharge, ear drainage, ear pain, ear ringing, eye pain, eye redness, hearing loss, mouth pain, mouth swelling, nasal discharge, nose bleeding, nose congestion, nose pain, photophobia, tearing, throat pain, throat swelling, voice changes, others Respiratory: denies: cough, hemoptysis, orthopnea, SOB at rest, shortness of breath, SOB with excertion, stridor, wheezing, others Cardiovascular: denies: chest pain, dizzy spells, diaphoresis, Dyspnea on exertion, edema, irregular heart beat, left arm pain, lightheadedness, palpitations, PND, syncope, others Gastrointestinal: reports: Improvement, no new nausea, vomiting or diarrhea; d enies: abdomen distended, abdominal pain, blood streaked bowels, constipated, diarrhea, dysphagia, difficulty swallowing, hematemesis, melena, poor appetite, poor fluid intake, rectal bleeding, rectal pain, others Genitourinary: denies: burning, dysuria, flank pain, frequency, hematuria, incontinence, penile discharge, penile sore, pain, testicle pain, testicle swelling, urgency, others Neurological: reports: No headache; denies: dizziness, fainting, left sided numbness, left sided weakness, numbness, paresthesia, pre-existing deficit, right sided numbness, right sided weakness, seizure, speech problems, tingling, tremors, weakness, others Musculoskeletal: denies: back pain, gout, joint pain, joint swelling, muscle pain, muscle stiffness, neck pain, others Integumetry: denies: bruises, change in color, change in hair/nails, dryness, laceration, lesions, lumps, rash, wounds, others Allergic/Immunocompromised: denies: Difficulty Healing, Frequent Infections, Hives, Itching, others Hematologic/Lymphatic: denies: anemia, blood clots, easy bleeding, easy bruising, swollen glands, others Endocrine: denies: excessive hunger, excessive sweating, excessive thirst, excessive urination, flushing, intolerance to cold, intolerance to heat, unexplained weight gain, unexplained weight loss, others Psychiatric: denies: anxiety, bipolar disorder, depression, hopeless, panic disorder, schizophrenia, sleepless, suicidal, others All Other Systems: Reviewed and Negative Physical Exam: General Appearance: , Alert, Orientedx3, Cooperative, No acute distress. HEENT: Atraumatic. Mucous membranes moist/pink Respiratory: normal lung expansion, vesicular breath sounds. Cardiovascular: Regular rate, Normal S1, Normal S2, no murmurs. Abdominal: Normal bowel sounds, Soft, no tenderness Extremities: no edema, normal ROM. left foot: partial left hallux amputation. Neuro: Strength at 5/5 X4 ext, Normal tone, Sensation intact Psych/Mental Status: Alerted, normal mood. Consults/Reason for consult XY CHEST PORTABLE, HISTORY: sob COMPARISON: None None TECHNICAL DATA: 1 view of the chest was obtained. FINDINGS: Lines and tubes: None Cardiomediastinal silhouette: normal Pulmonary vasculature: normal Lung expansion: normal Lung airspace: normal Lung interstitium: normal Pleura: normal Pneumothorax: no Bones: Unremarkable Other: no IMPRESSION: No acute intrathoracic abnormality. PROCEDURE(s): KIDUS - KIDNEY REASON: KEO ORDER NUMBER(s): [id number], ACCESSION NUMBER(s): [id number] INDICATION: KEO TECHNIQUE: Multiple real-time sonographic images of the kidneys and bladder were obtained. (39 images received.) COMPARISON: None FINDINGS: RIGHT kidney measures 12.45 cm in length. No hydronephrosis. LEFT kidney measures 12.62 cm in length. No hydronephrosis. No large intraluminal masses are seen in the bladder. Prevoid bladder volume 231.81 mL bladder wall measures 2.83 mm No postvoid image received. IMPRESSION: 1. Right kidney measures 12.45 cm. Left kidney measures 12.62 cm. 2. No hydronephrosis bilaterally. Condition at Discharge: Stable Final Diagnosis/Problems List -Possible community acquired pneumonia gram -/+ -Uncontroll DM2 with hyperglycemia -Hypertensive urgency -Intractable vomit possible due to acute gastroenterisits bacterial/viral -KEO due to VMN -DKA, ruled out. Discharge Disposition: Home SNF Discharge Will this Physician continue t: No Discharge Instruct/Medications Diet: Consistent carbohydrate, Cardiac 2g Na,low cholest Activity: No Restrictions, As Tolerated Follow Up/Referral: F/U with PCP in 1 week Medications: Jardiance 10mg po daily Lisinopril 20mg po daily Amlodipine 10mg po daily Clorthalidone 25mg po daily Scheduled Amlodipine Besylate (Amlodipine Besylate), 1 TAB PO QPM Chlorthalidone (Chlorthalidone), 25 MG PO DAILY Dapagliflozin Propanediol (Farxiga), 10 MG PO DAILY Lisinopril (Lisinopril), 1 TAB PO DAILY Discharge Statement: "Patient was advised to return to the ER or call 911 if any headaches, dizziness, shortness of breath, chest pain, abdominal pain, bleeding, fevers, or worsening of medical condition. Patient was counseled about treatment plan, medications, possible side effects, patientverbalized understanding. All questions were answered to the best of my ability. This discharge took greater then 30 minutes in planning, reviewing documentation, counseling the patient, and discussing with other team members." Discharge Care Plan Instructions Take Rx medications, Notify MD of any issues, Keep list of meds w/ you, Do not drink ETOH/smoke, Call 911 in an emergency, F/U w/ PCP, Provide comfort measures, Educate on timing of meds ASSESSMENT ASSESSMENT Assessment -Community acquire pneumonia gram -/+ -Uncontrolled DM2 with hyperglycemia, -DKA, ruled out. -Intractable vomit likely -KEO due to volume depletion -Hypertensive urgency -Diabetes with hyperglycemia. Goals of care discussed with the patient for more than 35 minutes: Code Status: Full code PCP: No establish, patient will follow up in d/c clinic Case discussed with Dr. Castellanos. Date of Service: Aug 06, 2025 Billing Provider: ROLAND CASTELLANOS MD Common Visit Codes: 96114-LUU/OBS DISCH DAY >30min SARAH GONZALEZ RESIDENT Aug 06, 2025 10:26 ROLAND CASTELLANOS MD Aug 06, 2025 22:53
[2025-08-06 12:53] VITALS: BP 155/105; PULSE 83; RESP 16; TEMP 97.7; O2SAT 99
[2025-08-06] MEDS ORDERED: LISI20TA56 PO (13:30)
[2025-08-06] MEDS ORDERED: CHLO25TA2 PO (13:30)
[2025-08-06] MEDS ORDERED: DAPA1TAB4 PO (13:30)
[2025-08-06] MEDS ORDERED: AMLO1TAB23 PO (13:30)
== END 2025-08-06 13:45 | disposition home or self-care (01) | DRG 371 ==
LOC: ER 06:12 → EDBD 06:12 → OVERFLOW 08:43 → DOU 10:21 → TELE-CENTR 16:43
PROVIDERS: ADMIT Internal Medicine; ATTEND Internal Medicine
DX: A04.9 Bacterial intestinal infection, unspecified (principal); J15.69 Pneumonia due to other Gram-negative bacteria; N17.0 Acute kidney failure with tubular necrosis; J15.9 Unspecified bacterial pneumonia; A08.4 Viral intestinal infection, unspecified; I13.10 Hypertensive heart and chronic kidney disease without heart failure, with stage 1 through stage 4 chronic kidney disease, or unspecified chronic kidney disease; E11.65 Type 2 diabetes mellitus with hyperglycemia; E86.9 Volume depletion, unspecified; E66.9 Obesity, unspecified; E78.5 Hyperlipidemia, unspecified; N18.31 Chronic kidney disease, stage 3a; E11.22 Type 2 diabetes mellitus with diabetic chronic kidney disease; Z68.31 Body mass index [BMI] 31.0-31.9, adult; I16.0 Hypertensive urgency; Z20.822 Contact with and (suspected) exposure to COVID-19; Z88.7 Allergy status to serum and vaccine; Z68.30 Body mass index [BMI] 30.0-30.9, adult; Z89.412 Acquired absence of left great toe
CPT/HCPCS: 36415; 36600; 71045; 76775; 80048; 80053; 80061; 80076; 80307; 80320; 81001; 82010; 82140; 82306; 82607; 82805; 82962; 83036; 83605; 83690; 83735; 83880; 83930; 84100; 84443; 85025; 85610; 85730; 87040; 87081; 87086; 87426; 87804; 93005; 93306; 96361; 96374; 96375; 99291; 99292; G0378; J1815; J2405

== ENCOUNTER 2025-09-02 09:05 | Outpatient (CLI) | payer BC ==
[~2025-09-02 09:05] MED LIST: AMLO1TAB23 PO; CHLO25TA2 PO; DAPA1TAB4 PO; LISI20TA56 PO
[2025-09-02 09:43] LABS: Chloride 101 mmol/L (98-107); Potassium 3.9 mmol/L (3.5-5.1); Sodium 137 mmol/L (136-145)
[2025-09-02 09:44] LABS: Anion Gap 10 (5-15); Carbon Dioxide 26 mmol/L (20-31)
[2025-09-02 09:45] LABS: Calcium 9.9 mg/dL (8.7-10.4)
[2025-09-02 09:49] LABS: BUN/Creatinine Ratio 13.4 (10.0-20.0)
[2025-09-02 10:04] LABS: Blood Urea Nitrogen 24 mg/dL (9-23); Glucose 167 mg/dL (74-106)
== END 2025-09-02 17:00 | disposition home or self-care (01) ==
LOC: LAB 09:05
PROVIDERS: ATTEND Internal Medicine
DX: I10 Essential (primary) hypertension (principal)
CPT/HCPCS: 36415; 80048